=== PATIENT | female | born 1955 | race Caucasian/White ===

== ENCOUNTER 2020-09-16 19:19 | Emergency (ER) | payer MEDICARE, SELFPAY ==
[2020-09-16 19:26] VITALS: BP 131/78; PULSE 75; RESP 18; TEMP 36.3; O2SAT 97; BMI 37.0
[2020-09-16 19:36] VITALS: BP 173/96; PULSE 78; O2SAT 97
--- NOTE | 2020-09-16 19:48 | W.ED.NAVMDI ---
HPI - Nausea/Vomiting/Diarrhea General: Chief complaint: Nausea/Vomiting/Diarrhea Stated complaint: nauseous, seeing circles,cataract surgery 09/16/20 Time Seen by Provider: 09/16/20 19:37 History of Present Illness: HPI Narrative: Patient is a 64-year-old female comes to the ED with motion sickness/nausea. Patient had cataract surgery on the left eye several hours ago and on the drive home from [place] she started feeling a little dizzy and nauseous. She states she just feels a little unsteady when up and moving around post cataract surgery. She feels like symptoms got worse when she was in the car feels like she developed a little bit of motion sickness. She denies any vomiting, fever, chills. Associated nausea: Yes Associated symtoms: Reports nausea; Denies change in vision, chest pain, dysuria, fatigue, headache(s) or palpitations Review of Systems Const: Denies: fever(s), chills or fatigue Eyes: Denies: change in vision or eye discomfort ENMT: Denies: throat pain, odynophagia, nasal discharge or nasal congestion Card: Denies: chest pain, palpitations, edema, swelling of feet/ankles, dyspnea on exertion or orthopnea Resp: Denies: dyspnea, productive cough or non-productive cough GI: Reports: nausea; Denies: abdominal pain, vomiting, diarrhea, constipation or hematochezia : Denies: flank pain, dysuria or hematuria Musc: Denies: neck pain, back pain or extremity swelling Skin/Breast: Denies: rash or new lesions Neuro: Reports: dizziness (motion sickness); Denies: headache(s), numbness in extremities or weakness in extremities Physical Exam Const: COMMON NORMALS: no acute distress, patient oriented x3 and alert HENMT: COMMON NORMALS: normocephalic HEAD & SCALP: normocephalic MOUTH: Normal oral and palatal mucosa present THROAT: posterior oropharynx normal and uvula midline Eye: COMMON NORMALS: Equal, round and reactive pupils present (Right pupil normal, left pupil is still dilated from cataract procedure), EOMs intact bilaterally and conjunctivae normal CONJUNCTIVA: Yes conjunctivae normal PUPIL: Yes Equal, round and reactive pupils present (Right pupil normal, left pupil is still dilated from cataract procedure) and Yes Dilated pupils on the left (Dilated from cataract procedure several hours ago.) OTHER: Patient's left pupil was still dilated from cataract procedure. Neck/C-Spine: COMMON NORMALS: supple GENERAL: Yes normal visual inspection Resp: COMMON NORMALS: normal respiratory effort, No retractions, No use of accessory muscles and clear to auscultation bilaterally AUSCULTATION: clear to auscultation bilaterally Cardio: COMMON NORMALS: regular rate, regular rhythm, S1 normal heart sound present, S2 normal heart sound present, No gallops present (Cardio), No clicks present (Cardio), No murmurs present (Cardio) and Peripheral pulses 2+ throughout RATE: regular rate RHYTHM: regular rhythm HEART SOUNDS: S1 normal heart sound present and S2 normal heart sound present PERIPHERAL PULSES: Peripheral pulses 2+ throughout GI: COMMON NORMALS: Normal to inspection, nondistended, normoactive bowel sounds present, Soft to palpation, non-tender and no masses PALPATION: Yes Soft to palpation : COMMON NORMALS: Yes no CVA tenderness BLADDER/KIDNEY EXAM: Yes no CVA tenderness Back/Pelvis: COMMON NORMALS: no CVA tenderness Extremity: COMMON NORMALS: normal to inspection Neuro: COMMON NORMALS: patient oriented x3 and moves all extremities SENSORIUM/ORIENTATION: Yes alert Skin: GENERAL SKIN EXAM: dry skin Course Vital Signs: Vital signs: Vital Signs Temperature 97.3 F L 09/16/20 19:26 Pulse Rate 72 09/16/20 20:19 Respiratory Rate 18 09/16/20 19:26 Blood Pressure 149/96 09/16/20 20:19 Pulse Oximetry 96 09/16/20 20:19 MDM - Nausea/Vomiting/Diarrhea MDM Narrative: Medical decision making narrative: Patient is a 64-year-old female that comes to the ED with some dizziness and nausea. Patient just had cataract surgery on the left eye several hours ago and on her way back home from [place] she started feeling dizzy little nauseous. Exam shows a healthy 64-year-old female in no acute distress. Her left eye pupil is still dilated from procedure. Other than that her eyes are normal upon exam. This dizziness is a common side effect after cataract surgery and due to patient driving home from [place] it probably worsened her symptoms. She was given some meclizine here in the ED to help with her dizziness. She was discharged home and told to follow-up at her next postop appointment. She was sent with a prescription for meclizine. Return to ED precautions given. Patient understood agree with plan. Discharge Plan Discharge Patient Disposition: Home Clinical Impression: Motion sickness Qualifiers: Encounter type: initial encounter Qualified Code(s): T75.3XXA - Motion sickness, initial encounter Condition: Stable Prescriptions: New meclizine 25 mg tablet 25 mg PO BID PRN (Reason: motion sickness) Qty: 10 RF: 0 Discharge Orders: Discharge ED (Routine); Ordered 09/16/20 Ordered By: Gabriel Choudhury Referrals: Karina Johnson DO [Primary Care Provider] - Discharge Diet: Regular Discharge Activity: Increase activity as tolerated Activity Restrictions/Additional Instructions: Follow-up with your eye surgeon at your scheduled appointment next week. Take medications as prescribed. Return to the ER or your medical provider if condition worsens. Please read and understand discharge instructions. If any questions, please ask. Coding Level of Care Code ED Materials Branch Chief for [facility] Exam Comprehensive
[2020-09-16] MEDS: meclizine 25 mg tablet PO (20:11)
[2020-09-16 20:19] VITALS: BP 149/96; PULSE 72; O2SAT 96
== END 2020-09-16 20:21 | disposition home or self-care (01) ==
PROVIDERS: Emergency Provider Physician Assistant; PCP Family Medicine
DX: T75.3XXA Motion sickness, initial encounter (principal)
CPT/HCPCS: 99283; J8597

== ENCOUNTER → 2023-07-20 08:40 | Outpatient (BNVA) | payer BC, SELFPAY | PROVIDERS: PCP Family Medicine; Visit Provider Family Medicine Adult Medicine | DX: I12.9 Hypertensive chronic kidney disease with stage 1 through stage 4 chronic kidney disease, or unspecified chronic kidney disease (principal); N18.30 Chronic kidney disease, stage 3 unspecified; F41.9 Anxiety disorder, unspecified | CPT/HCPCS: 80053; 80061; 84443; 85025 ==

== ENCOUNTER 2025-01-23 09:30 | Outpatient (CLI) | payer MEDICARE, SELFPAY ==
--- NOTE | 2025-01-23 09:38 | MM_ITS ---
WS: [id number] BILATERAL SCREENING DIGITAL TOMOSYNTHESIS MAMMOGRAM WITH CAD HISTORY: SCREENING COMPARISON: 07/26/2019, 12/28/2018 and 12/14/2018 Bilateral CC and MLO views with tomosynthesis and synthetic mammography submitted. Computer aided detection analyzed. Breast composition: There are scattered areas of fibroglandular density. No suspicious masses, microcalcifications or architectural distortion. Stable scattered asymmetries. There are a few benign calcifications within each breast. MM/MM scr tomosynthesis [id number] IMPRESSION: BI-RADS: 2 - Benign. FOLLOW UP: 1 Year Follow-up
== END 2025-01-23 09:31 | disposition home or self-care (01) ==
PROVIDERS: PCP Family Medicine Adult Medicine; Visit Provider Family Medicine
DX: Z12.31 Encounter for screening mammogram for malignant neoplasm of breast (principal); R92.323 Mammographic fibroglandular density, bilateral breasts; R92.1 Mammographic calcification found on diagnostic imaging of breast
CPT/HCPCS: 77063; 77067